=== PATIENT | female | born 1990 | race Hispanic/Latino ===

== ENCOUNTER 2017-05-31 22:27 | Emergency (ER) | payer SELFPAY ==
[2017-05-31 22:46] VITALS: BP 125/71; TEMP 98.6; O2SAT 100
--- NOTE | 2017-05-31 22:52 | ED.PDOC ---
History of Present Illness - General Chief Complaint: Respiratory Problem Stated Complaint: head congestion Time Seen by Provider: 05/31/17 22:48 Source: patient Exam Limitations: no limitations - History of Present Illness Initial Comments: The patient is a 27-year-old female presenting to the emergency room secondary to a mild cough and nasal congestion present for last 3 days. Possible low- grade fevers and a mild sore throat with some ear pressure. No shortness of breath. No significant near syncope. The patient has been using Zyrtec-D and Advil along with Afrin nasal spray. No fevers. She is feeling some sinus pressure. Severity: moderate Improving Factors: nothing Worsening Factors: nothing Associated Symptoms: cough, fever/chills, malaise Allergies/Adverse Reactions: Allergies Sulfa Antibiotics Allergy (Verified 04/16/14 13:51) Sulfamethoxazole w/Trimethoprim [From Bactrim] Allergy (Verified 04/16/14 13:51) Home Medications: Ambulatory Orders Cetirizine HCl [Zyrtec Allergy] 10 mg PO 05/31/17 Review of Systems - Review of Systems Constitutional: States: malaise EENTM: States: nose congestion, throat pain Respiratory: States: no symptoms reported, cough Cardiology: States: no symptoms reported Gastrointestinal/Abdominal: States: no symptoms reported Genitourinary: States: no symptoms reported Musculoskeletal: States: no symptoms reported Skin: States: no symptoms reported Neurological: States: no symptoms reported, headache - sinus Endocrine: States: no symptoms reported All other Systems: No Change from Baseline Past Medical History (General) - Patient Medical History Hx Seizures: No Hx Stroke: No Hx Dementia: No Hx Asthma: Yes Hx of COPD: No Hx Cardiac Disorders: No Hx Congestive Heart Failure: No Hx Pacemaker: No Hx Hypertension: Yes Hx Thyroid Disease: No Hx Diabetes: Yes Hx Gastroesophageal Reflux: Yes Hx Renal Disease: No Hx Cancer: No Hx of HIV: No Hx Hepatitis C: No Hx MRSA: No Surgical History: appendectomy, cholecystectomy - Vaccination History Hx Tetanus, Diphtheria Vaccination: No Hx Influenza Vaccination: Yes Hx Pneumococcal Vaccination: No - Social History Hx Tobacco Use: No Hx Chewing Tobacco Use: No Hx Alcohol Use: No Hx Substance Use: No Hx Substance Use Treatment: No Hx Depression: Yes Hx Physical Abuse: No Hx Emotional Abuse: No Hx Suspected Abuse: No - Female History Hx Last Menstrual Period: 09/13/13 Patient : No Family Medical History - Family History Father Grandparents Living Status: Hx Family Diabetes: Yes Physical Exam - Physical Exam General Appearance: Alert, Comfortable, No apparent distress Eye Exam: bilateral normal Ears, Nose, Throat: hearing grossly normal, nasal congestion, pharyngeal erythema Neck: non-tender, full range of motion Respiratory: lungs clear, normal breath sounds, no respiratory distress, no accessory muscle use Cardiovascular/Chest: normal peripheral pulses, regular rate, rhythm, no edema Peripheral Pulses: radial,right: 2+, radial,left: 2+, dorsalis pedis,right: 2+, dorsalis pedis,left: 2+ Gastrointestinal/Abdominal: non tender, soft Rectal Exam: deferred Back Exam: normal inspection Extremity: normal range of motion, non-tender, normal inspection, no pedal edema , normal capillary refill 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 The patient needs to keep herself well-hydrated. Continue the Advil 3 times daily for the next few days with food. She can continue Zyrtec twice daily for the next few days. She can add a saline nasal spray such as Broome spray nasal spray every couple of hours throughout the day. A humidifier may help symptoms. Plain Mucinex can also be taken as needed to help thin secretions. he should follow- up with her primary care doctor towards the end of the week. ER warnings were given for any significant worsening. Departure - Departure Clinical Impression: Common cold Disposition: Discharge to Home or Self Care Condition: Fair Departure Forms: ED Discharge - Pt. Copy, Patient Portal Self Enrollment Instructions: DI for Common Cold Diet: regular diet Activity: increase activity as tolerated Home Medications: Ambulatory Orders Cetirizine HCl [Zyrtec Allergy] 10 mg PO 05/31/17 Additional Instructions: the patient's a 27-year-old female presenting to the emergency room with what appears to be a viral upper respiratory tract infection. The patient needs to keep herself well-hydrated. Continue the Advil 3 times daily for the next few days with food. She can continue Zyrtec twice daily for the next few days. She can add a saline nasal spray such as Broome spray nasal spray every couple of hours throughout the day. A humidifier may help symptoms. Plain Mucinex can also be taken as needed to help thin secretions. he should follow- up with her primary care doctor towards the end of the week. ER warnings were given for any significant worsening.
== END 2017-05-31 22:58 | disposition home or self-care (01) ==
LOC: ER 22:27
DX: J00 Acute nasopharyngitis [common cold] (principal); J45.909 Unspecified asthma, uncomplicated; I10 Essential (primary) hypertension; E11.9 Type 2 diabetes mellitus without complications; K21.9 Gastro-esophageal reflux disease without esophagitis

== ENCOUNTER 2017-06-26 20:27 | Emergency (ER) | payer SELFPAY ==
[2017-06-26] MEDS ORDERED: ONDANSETRON ODT 8 MG TAB SL ONE (21:06)
[2017-06-26] MEDS ORDERED: SODIUM CHLORIDE 0.9% 1000ML 1,000 ML IVS ONE (21:06)
--- NOTE | 2017-06-26 21:09 | ED.PDOC ---
History of Present Illness - General Chief Complaint: GI Problem Stated Complaint: vomiting and diarrhea Time Seen by Provider: 06/26/17 21:06 Information Source: patient Exam Limitations: no limitations - History of Present Illness Initial Comments: patient comes in today with 1 day onset of nausea, vomiting, abdominal cramping , and diarrhea. Patient states she felt fine yesterday and actually went to the [place]. There she had a turkey leg. It tasted fine and no one else in the family got sick. This morning breakfast was normal at home. Several hours later patient started having nausea, vomiting, and multiple episodes of loose diarrhea. She has no fever or chills. However, her abdominal cramping is diffuse and severe. Patient states she very rarely actually has vomiting and is seems to be more severe than in the past. No one else has been sick in her family. She has no recent travel. Patient has diet-controlled diabetes mellitus as well as diet controlled hypertension. She does have the IUD in place for control. Abdominal Pain Onset Location: generalized abdomen Pain Radiation: no radiation Quality: moderate, cramping Timing/Duration: 7-24 hours Improving Factors: nothing Worsening Factors: nothing Associated Symptoms: nausea/vomiting Review of Systems - Review of Systems Constitutional: States: no symptoms reported. Denies: chills, fever EENTM: States: no symptoms reported. Denies: ear pain, nose pain, nose congestion Respiratory: States: no symptoms reported. Denies: cough, short of breath, wheezing Cardiology: States: no symptoms reported. Denies: chest pain, edema, palpitations Gastrointestinal/Abdominal: States: see HPI Genitourinary: States: no symptoms reported. Denies: dysuria, frequency, hematuria Skin: States: no symptoms reported Neurological: States: no symptoms reported Past Medical History (General) - Patient Medical History Hx Seizures: No Hx Stroke: No Hx Dementia: No Hx Asthma: Yes Hx of COPD: No Hx Cardiac Disorders: No Hx Congestive Heart Failure: No Hx Pacemaker: No Hx Hypertension: Yes Hx Thyroid Disease: No Hx Diabetes: Yes Hx Gastroesophageal Reflux: Yes Hx Renal Disease: No Hx Cancer: No Hx of HIV: No Hx Hepatitis C: No Hx MRSA: No Hx Other - free text: Nephrolithiasis Surgical History: cholecystectomy, tonsillectomy - Vaccination History Hx Tetanus, Diphtheria Vaccination: No Hx Influenza Vaccination: Yes Hx Pneumococcal Vaccination: No - Social History Hx Tobacco Use: No Hx Chewing Tobacco Use: No Hx Alcohol Use: No Hx Substance Use: No Hx Substance Use Treatment: No Hx Depression: Yes Hx Physical Abuse: No Hx Emotional Abuse: No Hx Suspected Abuse: No - Female History Patient is a Female of Child Bearing Age (10 -59 yrs old): Yes Hx Last Menstrual Period: 09/13/13 Patient : No Family Medical History - Family History Father Grandparents Living Status: Hx Family Diabetes: Yes Physical Exam - Physical Exam General Appearance: Alert, Ill Appearing Eyes, Ears, Nose, Throat Exam: PERRL/EOMI, normal ENT inspection, TMs normal, pharynx normal, other - tacky mucous membranes Neck: non-tender, full range of motion, supple, normal inspection Respiratory: chest non-tender, lungs clear, normal breath sounds, no respiratory distress Cardiovascular/Chest: normal peripheral pulses, regular rate, rhythm, no edema, no gallop, no JVD, no murmur Peripheral Pulses: No deficit Gastrointestinal/Abdominal: soft, other - tender to palpation diffusely without rebound or guarding. Hypoactive bowel sounds in all 4 quadrants. No masses no hernias Back Exam: no CVA tenderness Extremity: normal range of motion Neurologic: alert, oriented x 3 Progress - Progress Progress: 06/26/17 21:40 06/26/17 21:06 Sodium Chloride 0.9% 1000ML [Ns 1000 ml] 1,000 ml IVS ONCE URINALYSIS Stat Laboratory Results WBC 14.2 K/mm3 (4.8-10.8) H 06/26/17 21:15 RBC 4.73 M/mm3 (4.20-5.40) 06/26/17 21:15 Hgb 14.8 gm/dL (12.0-16.0) 06/26/17 21:15 Hct 42.4 % (36.0-47.0) 06/26/17 21:15 MCV 89.7 fl (81.0-99.0) 06/26/17 21:15 MCH 31.2 pg (27.0-31.0) H 06/26/17 21:15 MCHC 34.8 g/dL (33.0-37.0) 06/26/17 21:15 RDW 13.3 % (11.5-14.5) 06/26/17 21:15 Plt Count 321 K/mm3 (130-400) 06/26/17 21:15 MPV 8.2 fl (7.40-10.4) 06/26/17 21:15 Absolute Neuts (auto) 12.10 K/uL (1.8-6.8) H 06/26/17 21:15 Absolute Lymphs (auto) 1.20 K/uL (1.0-3.4) 06/26/17 21:15 Absolute Monos (auto) 0.70 K/uL (0.2-0.8) 06/26/17 21:15 Absolute Eos (auto) 0.10 K/uL (0.0-0.4) 06/26/17 21:15 Absolute Basos (auto) 0.00 K/uL (0.0-0.1) 06/26/17 21:15 Neutrophils % 85.3 % (42.0-78.0) H 06/26/17 21:15 Lymphocytes % 8.7 % (20.0-50.0) L 06/26/17 21:15 Monocytes % 5.0 % (2.0-9.0) 06/26/17 21:15 Eosinophils % 0.7 % (1.0-5.0) L 06/26/17 21:15 Basophils % 0.3 % (0.0-2.0) 06/26/17 21:15 Sodium 139 mmol/L (135-145) 06/26/17 21:15 Potassium 4.2 mmol/L (3.6-5.0) 06/26/17 21:15 Chloride 103 mmol/L (101-111) 06/26/17 21:15 Carbon Dioxide 26 mmol/L (21-31) 06/26/17 21:15 Anion Gap 14.2 (12-18) 06/26/17 21:15 BUN 17 mg/dL (7-18) 06/26/17 21:15 Creatinine 0.53 mg/dL (0.6-1.3) L 06/26/17 21:15 BUN/Creatinine Ratio 32.1 (10-20) H 06/26/17 21:15 Random Glucose 174 mg/dL (70-105) H 06/26/17 21:15 Serum Osmolality 283.3 mOsm/L (275-295) 06/26/17 21:15 Calcium 10.1 mg/dL (8.4-10.2) 06/26/17 21:15 Total Bilirubin 0.8 mg/dL (0.2-1.0) 06/26/17 21:15 AST 57 IU/L (10-42) H 06/26/17 21:15 ALT 91 IU/L (10-60) H 06/26/17 21:15 Alkaline Phosphatase 131 IU/L (42-121) H 06/26/17 21:15 Serum Total Protein 8.4 gm/dL (6.4-8.2) H 06/26/17 21:15 Albumin 5.0 g/dl (3.2-5.5) 06/26/17 21:15 Globulin 3.4 gm/dL (2.3-3.5) 06/26/17 21:15 Albumin/Globulin Ratio 1.5 (1.1-1.9) 06/26/17 21:15 Serum HCG, Qual Negative 06/26/17 21:15 - Results/Orders Results/Orders: Patient Name: YU TOM Gender: Female Date of : 1990 Referring Physician: GRIFFIN ALDANA Organization: [facility] Accession Number: [id number] Requested Date: June 26, 2017 23:22 Report Status: Final Requested Procedure: 1 Procedure Description: Abdoment/Pelvis w/o Contrast Modality: CT Findings Reporting MD: Vikash Ricardo Fellow MD: Not available Dictation Time: Radiation Engineer: Not available Dispatcher Chief Oil Date: Procedure: CT ABDOMEN PELVIS WITHOUT IV CONTRAST Exam Date: 06/26/2017 Ordering Provider: GRIFFIN ALDANA Clinical Indication: Right lower quadrant pain Comparison: None TECHNIQUE: 5 mm images were taken through the abdomen and pelvis without the administration of nonionic intravenous contrast material. Oral contrast was not administered. Coronal and sagittal reformatted images were generated. This exam was performed according to our departmental dose optimization program which includes use of automated exposure control, adjustment of the mA and/or kV according to patient size and/or use of iterative reconstruction technique. FINDINGS: Lower chest: Nonacute Abdomen: Liver and biliary system: Hepatomegaly. Hepatic steatosis. Prior cholecystectomy. Spleen: Unremarkable Pancreas: Unremarkable Adrenal glands: Unremarkable Kidneys: No hydronephrosis in either kidney. Lymph nodes: Prominent mesenteric and right lower quadrant lymph nodes. Retroperitoneum, abdominal wall, peritoneal cavity: No ascites. No free intraperitoneal air. Small Fat-containing umbilical [facility] [address] [facility], [address] [place], [place] T [phone] F [phone] Kambit - Report exported on Jun 27, 2017 00:17:32 -0500 - Page 2 of 2 hernia. Vessels: No abdominal aortic aneurysm. Pelvis: Lymph nodes: No lymphadenopathy Bowel: No bowel obstruction. No findings to suggest acute appendicitis. No bowel wall thickening evident. Bladder: Unremarkable Pelvic organs: IUD noted Bones: Nonacute IMPRESSION: 1. Findings suggestive of mesenteric adenitis. 2. No evidence of acute appendicitis. 3. Hepatomegaly and hepatic steatosis. discussed with patient diagnoses. She understands this sometimes can be a foodborne illness by any gastroenteritis may cause this. Although we normally do see children certainly possible to have any age. She understands if the symptoms do not improve in the next 36 hours she should have a stool culture with her PCP. Worsening or continuing of severe abdominal pain she cause her to come to the emergency room again. Discussed diet changes, decrease processed carbohydrates and fatty foods for the fatty liver disease and umbilical hernia which is asymptomatic at this time. Departure - Departure Clinical Impression: Mesenteric adenitis, Fatty (change of) liver, not elsewhere classified Umbilical hernia Qualifiers: Obstruction and gangrene presence: without obstruction or gangrene Qualified Code(s): K42.9 - Umbilical hernia without obstruction or gangrene Disposition: Discharge to Home or Self Care Condition: Fair Departure Forms: ED Discharge - Pt. Copy, Patient Portal Self Enrollment Diet: low fat, low cholesterol Home Medications: Ambulatory Orders Cetirizine HCl [Zyrtec Allergy] 10 mg PO 05/31/17 Additional Instructions: patient should increase by mouth fluid. May take [id number] ibuprofen for pain and was slowly increase her diet back to normal diet. She should cut out processed carbohydrates as well as fat foods. follow-up to recheck her liver after acute illness is over into 3 weeks. return to ER for increased pain , intractable emesis, failure to improve in 36 hours. If not improved may need stool culture.
[2017-06-26] MEDS ORDERED: PROMETHAZINE HCL INJ 12.5 MG in SODIUM CHLORIDE 0.9% 50ML 50 ML IVPB ONE (23:01)
[2017-06-26] MEDS ORDERED: LOPERAMIDE CAP 2 MG CAP PO ONE (23:02)
[2017-06-26] MEDS ORDERED: PROMETHAZINE HCL INJ 25 MG/ML VIAL ONE (23:06)
[2017-06-26] MEDS ORDERED: SODIUM CHLORIDE 0.9% 50ML 50 ML ONE (23:06)
--- NOTE | 2017-06-27 00:10 | CT ---
Procedure: CT ABDOMEN PELVIS WITHOUT IV CONTRAST Exam Date: 06/26/2017 Ordering Provider: GRIFFIN ALDANA Clinical Indication: Right lower quadrant pain Comparison: None TECHNIQUE: 5 mm images were taken through the abdomen and pelvis without the administration of nonionic intravenous contrast material. Oral contrast was not administered. Coronal and sagittal reformatted images were generated. This exam was performed according to our departmental dose optimization program which includes use of automated exposure control, adjustment of the mA and/or kV according to patient size and/or use of iterative reconstruction technique. FINDINGS: Lower chest: Nonacute Abdomen: Liver and biliary system: Hepatomegaly. Hepatic steatosis. Prior cholecystectomy. Spleen: Unremarkable Pancreas: Unremarkable Adrenal glands: Unremarkable Kidneys: No hydronephrosis in either kidney. Lymph nodes: Prominent mesenteric and right lower quadrant lymph nodes. Retroperitoneum, abdominal wall, peritoneal cavity: No ascites. No free intraperitoneal air. Small Fat-containing umbilical hernia. Vessels: No abdominal aortic aneurysm. Pelvis: Lymph nodes: No lymphadenopathy Bowel: No bowel obstruction. No findings to suggest acute appendicitis. No bowel wall thickening evident. Bladder: Unremarkable Pelvic organs: IUD noted Bones: Nonacute IMPRESSION: 1. Findings suggestive of mesenteric adenitis. 2. No evidence of acute appendicitis. 3. Hepatomegaly and hepatic steatosis. Electronically signed by: Vikash Ricardo MD 06/27/2017 12:08 AM CDT
[2017-06-27] MEDS ORDERED: KETOROLAC TROMETHAMINE INJ 30 MG/ML VIAL IV ONE (00:19)
[2017-06-27 00:36] VITALS: BP 104/72; TEMP 98.2; O2SAT 98
== END 2017-06-27 00:36 | disposition home or self-care (01) ==
LOC: ER 20:27
DX: I88.0 Nonspecific mesenteric lymphadenitis (principal); K76.0 Fatty (change of) liver, not elsewhere classified; K42.9 Umbilical hernia without obstruction or gangrene; E11.9 Type 2 diabetes mellitus without complications; I10 Essential (primary) hypertension; J45.909 Unspecified asthma, uncomplicated
CPT/HCPCS: 36415; 74176; 80053; 81001; 84703; 85025; A4216; J1885; J2550; J7030

== ENCOUNTER 2017-12-09 17:23 | Emergency (ER) | payer SELFPAY ==
[2017-12-09 17:31] VITALS: TEMP 100.8
[2017-12-09] MEDS ORDERED: SODIUM CHLORIDE 0.9% 1000ML 1,000 ML IVS ONE (17:34)
[2017-12-09] MEDS ORDERED: diphenhydrAMINE HCL 50 MG/ML VIAL IV ONE (17:36)
[2017-12-09] MEDS ORDERED: METOCLOPRAMIDE HCL INJ 10 MG/2 ML VIAL IV ONE (17:37)
[2017-12-09] MEDS ORDERED: PANTOPRAZOLE SODIUM IV 40 MG VIAL IV ONE (17:37)
--- NOTE | 2017-12-09 17:41 | ED.PDOC ---
History of Present Illness - General Chief Complaint: Abdominal Pain Stated Complaint: ABD PAIN VOMITING Time Seen by Provider: 12/09/17 17:33 Information Source: patient, family Exam Limitations: no limitations - History of Present Illness Initial Comments: PAIN ONSET THIS AM, BUT WORSENING Abdominal Pain Onset Location: epigastric Pain Radiation: back Quality: cramping Timing/Duration: getting worse Improving Factors: nothing Worsening Factors: other - WORSE WITH BREATHING Associated Symptoms: back pain Review of Systems - Review of Systems Constitutional: Denies: fever EENTM: States: no symptoms reported Respiratory: Denies: cough, short of breath Cardiology: Denies: chest pain Gastrointestinal/Abdominal: States: abdominal pain, nausea Genitourinary: States: no symptoms reported Musculoskeletal: States: no symptoms reported Skin: States: no symptoms reported Neurological: States: no symptoms reported Endocrine: States: no symptoms reported Past Medical History (General) - Patient Medical History Hx Seizures: No Hx Stroke: No Hx Dementia: No Hx Asthma: Yes Hx of COPD: No Hx Cardiac Disorders: No Hx Congestive Heart Failure: No Hx Pacemaker: No Hx Hypertension: Yes Hx Thyroid Disease: No Hx Diabetes: Yes Hx Gastroesophageal Reflux: Yes Hx Renal Disease: No Hx Cancer: No Hx of HIV: No Hx Hepatitis C: No Hx MRSA: No - Vaccination History Hx Tetanus, Diphtheria Vaccination: No Hx Influenza Vaccination: Yes Hx Pneumococcal Vaccination: No - Social History Hx Tobacco Use: No Hx Chewing Tobacco Use: No Hx Alcohol Use: No Hx Substance Use: No Hx Substance Use Treatment: No Hx Depression: Yes Hx Physical Abuse: No Hx Emotional Abuse: No Hx Suspected Abuse: No - Female History Hx Last Menstrual Period: 09/13/13 Patient : No Family Medical History - Family History Father Grandparents Living Status: Hx Family Diabetes: Yes Physical Exam - Physical Exam General Appearance: Obvious distress Eyes, Ears, Nose, Throat Exam: PERRL/EOMI, pharynx normal Neck: non-tender, full range of motion Respiratory: chest non-tender, lungs clear, normal breath sounds, no respiratory distress Cardiovascular/Chest: normal peripheral pulses, regular rate, rhythm Gastrointestinal/Abdominal: normal bowel sounds, soft, tenderness - TENDERNESS MILD IN EPIGASTRIUM WITHOUT GUARDING OR REBOUND Back Exam: CVA tenderness (R) Extremity: normal range of motion, non-tender, normal inspection, no pedal edema Neurologic: alert, normal mood/affect, oriented x 3 Skin Exam: normal color, warm/dry Lymphatic: no adenopathy Departure - Departure Clinical Impression: Elevated liver enzymes, Gastroparesis GERD (gastroesophageal reflux disease) Qualifiers: Esophagitis presence: without esophagitis Qualified Code(s): K21.9 - Gastro- esophageal reflux disease without esophagitis Disposition: Discharge to Home or Self Care Departure Forms: ED Discharge - Pt. Copy, Patient Portal Self Enrollment Instructions: DI for Abdominal Pain-Adult Prescriptions: Ondansetron [Zofran Odt] 4 mg PO Q6HR PRN #15 tab PRN Reason: Nausea Metoclopramide Tab [Reglan Tab] 5 mg PO AC #20 tab Home Medications: Ambulatory Orders Cetirizine HCl [Zyrtec Allergy] 10 mg PO 05/31/17 Metoclopramide Tab [Reglan Tab] 5 mg PO AC #20 tab 12/09/17 Ondansetron [Zofran Odt] 4 mg PO Q6HR PRN #15 tab 12/09/17
[2017-12-09 18:40] VITALS: O2SAT 96
[2017-12-09 19:03] VITALS: BP 107/72
== END 2017-12-09 19:02 | disposition home or self-care (01) ==
LOC: ER 17:23
DX: E11.43 Type 2 diabetes mellitus with diabetic autonomic (poly)neuropathy (principal); K31.84 Gastroparesis; K21.9 Gastro-esophageal reflux disease without esophagitis; R79.89 Other specified abnormal findings of blood chemistry; J45.909 Unspecified asthma, uncomplicated; I10 Essential (primary) hypertension; F32.9 Major depressive disorder, single episode, unspecified
CPT/HCPCS: 36415; 80053; 83690; 85025; J1200; J2765; J7030

== ENCOUNTER 2018-12-19 03:16 | Emergency (ER) | payer SELFPAY ==
[2018-12-19] MEDS ORDERED: MORPHINE SULFATE INJ 10 MG/ML VIAL IM ONE (05:05)
[2018-12-19] MEDS ORDERED: MORPHINE SULFATE INJ 10 MG/ML VIAL ONE (05:06)
[2018-12-19] MEDS ORDERED: SODIUM CHLORIDE 0.9% 1000ML 1,000 ML IVS ONE ×2 (05:06→06:44)
[2018-12-19] MEDS ORDERED: ALUM & MAG HYDROX-SIMETHICONE 30 ML, LIDOCAINE VISCOUS 2% 15 ML PO ONE ×2 (05:06)
[2018-12-19] MEDS ORDERED: ONDANSETRON ODT 8 MG TAB SL ONE (05:06)
--- NOTE | 2018-12-19 05:07 | RAD ---
EXAM: Acute abdominal series. INDICATION: Abdominal pain, acute. COMPARISON: None. FINDINGS: Cardiac silhouette: Unremarkable. Hazel: Unremarkable. Lobar consolidation: None. Pleural effusion: None. Pneumothorax: None. Other: None. Intraperitoneal free air: Negative. Bowel: No dilated loops of small bowel or air-fluid levels. Moderate amount of stool within the colon. Bones: Unremarkable. Other: Liver appears enlarged measuring 26.2 cm in cc dimension. Cholecystectomy clips are noted. An IUD is in the pelvis. IMPRESSION: 1. Nonspecific, nonobstructed bowel gas pattern. 2. Hepatomegaly. Electronically signed by: Richard Amezcua MD 12/19/2018 5:05 AM CDT
[2018-12-19] MEDS ORDERED: INSULIN, REG.(HUMAN) 100 U/ML VIAL IV ONE (05:08)
[2018-12-19] MEDS ORDERED: LIDOCAINE HCL 2% (MOUTH-THROAT) 15 ML UD ONE (05:14)
[2018-12-19] MEDS ORDERED: ALUM & MAG HYDROX-SIMETHICONE 30 ML UD ONE (05:15)
[2018-12-19] MEDS ORDERED: INSULIN LISPRO 100 UNITS/ML PEN SUBCU ONE (05:40)
--- NOTE | 2018-12-19 05:40 | ED.PDOC ---
History of Present Illness - General Chief Complaint: Abdominal Pain Stated Complaint: abdominal pain Time Seen by Provider: 12/19/18 03:47 Source: patient Exam Limitations: no limitations - History of Present Illness Initial Comments: the patient is a 28-year-old female presented to emergency room with 3 days of really severe epigastric and periumbilical pain. The epigastric discomfort is the most uncomfortable. It is better with sitting upright and worse with lying back. It feels like something is pulling when she lies back. She does have a previous cholecystectomy port site at almost the point of maximal pain. I do not definitively feel a hernia there and I'm having a difficult time seeing any definite hernia there. No definite fevers. She is a type II diabetic but does not take any medications for it. She does have a history of hepatomegaly for an uncertain reason she also has a history of marked hyperlipidemia and hypercholesterolemia for which she is not taking any medications. I cannot find anywhere in her records that she has been appropriately worked up for this. She has never seen gastroenterology. She is not taking any medications for hypertriglyceridemia or hypercholesterolemia. She does have a known small umbilical hernia that does cause her some discomfort and has for several years. Timing/Duration: unsure Severity: severe Improving Factors: other - sitting up Worsening Factors: other - jasper back flat Associated Symptoms: loss of appetite, nausea/vomiting Allergies/Adverse Reactions: Allergies Sulfa Antibiotics Allergy (Verified 04/16/14 13:51) Sulfamethoxazole w/Trimethoprim [From Bactrim] Allergy (Verified 04/16/14 13:51) Home Medications: Ambulatory Orders NK 12/19/18 Review of Systems - Review of Systems Constitutional: States: malaise EENTM: States: no symptoms reported Respiratory: States: no symptoms reported Cardiology: States: no symptoms reported Gastrointestinal/Abdominal: States: abdominal pain, nausea Genitourinary: States: no symptoms reported Musculoskeletal: States: no symptoms reported Skin: States: no symptoms reported Neurological: States: no symptoms reported Endocrine: States: no symptoms reported All other Systems: No Change from Baseline Past Medical History (General) - Patient Medical History Hx Seizures: No Hx Stroke: No Hx Dementia: No Hx Asthma: Yes Hx of COPD: No Hx Cardiac Disorders: No Hx Congestive Heart Failure: No Hx Pacemaker: No Hx Hypertension: Yes Hx Thyroid Disease: No Hx Diabetes: Yes Hx Gastroesophageal Reflux: Yes Hx Renal Disease: No Hx Cancer: No Hx of HIV: No Hx Hepatitis C: No Hx MRSA: No Surgical History: cholecystectomy, tonsillectomy - Vaccination History Hx Tetanus, Diphtheria Vaccination: No Hx Influenza Vaccination: No Hx Pneumococcal Vaccination: No - Social History Hx Tobacco Use: No Hx Chewing Tobacco Use: No Hx Alcohol Use: No Hx Substance Use: No Hx Substance Use Treatment: No Hx Depression: Yes Hx Physical Abuse: No Hx Emotional Abuse: No Hx Suspected Abuse: No - Female History Patient is a Female of Child Bearing Age (10 -59 yrs old): Yes Hx Last Menstrual Period: 09/13/13 Patient : No - Triage Comment ED Triage Comment: Low/mid abdominal pain for past week, but now pain to upper mid abdomen and increasing. Denies vomiting but states has nausea. Also out of all meds at present Family Medical History - Family History Father Grandparents Living Status: Hx Family Diabetes: Yes Physical Exam - Physical Exam General Appearance: Alert, Obvious distress, Other - the patient is leaning forward and pain. Eye Exam: bilateral normal Ears, Nose, Throat: hearing grossly normal, normal ENT inspection Neck: full range of motion, supple Respiratory: lungs clear, normal breath sounds, no respiratory distress, no accessory muscle use Cardiovascular/Chest: normal peripheral pulses, regular rate, rhythm - orderline tachycardia, no edema Peripheral Pulses: radial,right: 2+, radial,left: 2+, dorsalis pedis,right: 2+, dorsalis pedis,left: 2+ Gastrointestinal/Abdominal: hepatomegaly - the patient's liver is huge but nontender to palpation., other - the patient is obese and has a large pannus. She does have some mild to moderate pain at the umbilical hernia site whichis partially reducible. She also has pain at the epigastric region underneath an operative port site from her previous cholecystectomy. I cannot definitively feel a hernia nor able to clearly define one on ultrasound. 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, alert, normal mood/affect, oriented x 3 Skin Exam: normal color Comments: Vital Signs - 24 hr 12/19/18 12/19/18 12/19/18 03:30 04:18 05:00 Temperature 98.0 F Pulse Rate [ 106 H 89 98 H Right] Respiratory 18 18 Rate Blood Pressure 124/95 134/79 149/110 [Left Arm] O2 Sat by Pulse 100 96 97 Oximetry 12/19/18 05:41 Temperature Pulse Rate [ 989 H Right] Respiratory 20 Rate Blood Pressure 116/78 [Left Arm] O2 Sat by Pulse Oximetry Progress - Progress Progress: 12/19/18 06:07 the patient is a 28-year-old female presenting to the emergency room secondary toepigastric pain is significantly worse over the last 3 days. She has had some nausea but no vomiting. The patient does have complicating factors that she has significant hepatomegaly and severe hyperlipidemia. Several blood draws have had to be performed in order to get some chemistry results. Even with these chemistry results were not entirely certain how accurate they are. There is a wide variation in the [id number] glucose and the measured glucose by lab. There is some significant hyponatremia noted on lab however we're not certain if this is real at this point. The patient is going to go ahead and receive some subcutaneous insulin for presumed hyperglycemia and a liter of IV fluids for the hyponatremia and likely at least mild dehydration given her lack of treatment of her diabetes. Abdominal pain is somewhat better after 4 mg of morphine and a GI cocktail. We are currently awaiting a CT scan report on the abdomen and pelvis. We are also currently waiting a lipid profile which may take a while given that her blood looks closer to melted butter than blood. she has apparently not seen endocrine or gastroenterology in the past for her diabetes or her significant hepatomegaly. Management of her diabetes may be extremely difficult until the hypertriglyceridemia is improved upon as apparently Accu-Chek numbers are notoriously erroneous when lipid numbers are so high. 12/19/18 06:54 update:CT scan of abdomen and pelvis without contrast does not show any developing hernia in the epigastric area. It does however show changes consistent with underlying pancreatitis. This is no surprise given a triglyceride level of approximately 13,000. The patient is continuing to receive IV fluids. pain is better than it was after the pain medications. We are going to try and transfer the patient to [facility] where she can be seen by gastroenterology, possibly endocrinology for management of her hepatomegaly, fatty liver, hypertriglyceridemia and pancreatitis. I'm uncertain how accurate the rest of the lab work is and should be repeated upon arrival in their laboratory system. For now she is receiving a couple of liters of IV fluids which should only help with moderate hyponatremia if it is actually present. She will need a repeat potassium. No potassium has been given here at this time. Again I'm uncertain how accurate the potassium is. I would also recommend repeating an amylase and lipase. the lipase was normal, but again the lab work is uncertain and the CT scan and clinical picture are consistent with pancreatitis. Certainly a blood sugar needs to be repeated on the blood draw. Transferred for higher level of care and specialty care. The patient may require something along the lines of plasmapheresis in order to remove triglycerides to allow the pancreatitis to improve. For now she is nothing by mouth except water. Additionally the patient does have a 5.7 cm right adnexal structure that needs a follow-up pelvic ultrasound. [email or web address] [email or web address] [phone] 12/19/18 07:18 - Results/Orders Results/Orders: acute abdominal series shows markedly hepatomegaly. Departure - Departure Clinical Impression: Hypertriglyceridemia, Hyponatremia, Adnexal mass, Hepatomegaly Pancreatitis Qualifiers: Chronicity: acute Pancreatitis type: other Acute pancreatitis complication: no infection or necrosis Qualified Code(s): K85.80 - Other acute pancreatitis without necrosis or infection Disposition: Transfer to Hospital Departure Forms: ED Discharge - Pt. Copy, Patient Portal Self Enrollment Instructions: DI for Abdominal Pain-Adult Referrals: Lupillo Cho MD [Primary Care Provider] - 1-2 Weeks Home Medications: Ambulatory Orders NK 12/19/18 Transfer to Outside Facility - Transfer Information Accepting Facility: [facility] Reason for Transfer: required specialist not available
[2018-12-19] MEDS ORDERED: PANTOPRAZOLE SODIUM IV 40 MG VIAL IV ONE (06:06)
[2018-12-19] MEDS ORDERED: SUCRALFATE 1 GM/10 ML 1 GM UD PO ONE (06:06)
--- NOTE | 2018-12-19 06:40 | CT ---
EXAM: CT Abdomen and Pelvis Without Intravenous Contrast CLINICAL HISTORY: The patient is 28 years old and is Female; epigastric pain near prev port site, hepatomegaly TECHNIQUE: Axial computed tomography images of the abdomen and pelvis without intravenous contrast. Sagittal and coronal reformatted images were created and reviewed. This CT exam was performed using one or more of the following dose reduction techniques: automated exposure control, adjustment of the mA and/or kV according to patient size, and/or use of iterative reconstruction technique. COMPARISON: CT of the abdomen and pelvis June 26, 2017. FINDINGS: LUNG BASES: Unremarkable. No mass. No consolidation. ABDOMEN: LIVER: There is a diffuse decrease in hepatic parenchymal density, consistent with fatty infiltration. The liver is enlarged. GALLBLADDER AND BILE DUCTS: Surgical clips are present in the right upper quadrant, consistent with previous cholecystectomy. PANCREAS: Peripancreatic inflammation and fluid is noted. No ductal dilation. SPLEEN: Unremarkable. ADRENALS: Unremarkable. No mass. KIDNEYS AND URETERS: No obstructing stones. No hydronephrosis. No perinephric fluid. STOMACH AND BOWEL: Stomach is decompressed. The small bowel is relatively normal in caliber. A moderate amount stool is present throughout colon. There is no mucosal thickening or evidence of bowel obstruction. PELVIS: APPENDIX: The appendix is normal in caliber without surrounding inflammation. BLADDER: Unremarkable. No stones. REPRODUCTIVE: An approximate 5.7 cm right adnexal low attenuating lesion is present. An IUD is in place. The left ovary is not definitively seen. ABDOMEN and PELVIS: INTRAPERITONEAL SPACE: Trace free fluid is present within the pelvis which is likely physiologic. No free air. BONES/JOINTS: No acute fracture. SOFT TISSUES: A small fat-containing umbilical hernia is present. VASCULATURE: Unremarkable. No abdominal aortic aneurysm. LYMPH NODES: Unremarkable. No enlarged lymph nodes. IMPRESSION: 1. Findings consistent with acute pancreatitis. No pseudocyst. 2. Large right ovarian cyst. Recommend prompt follow-up with pelvic US. 3. Hepatomegaly and hepatic steatosis. Electronically signed by: Sheryl Mendosa MD 12/19/2018 6:39 AM CDT
[2018-12-19 07:21] VITALS: TEMP 98.9
[2018-12-19] MEDS ORDERED: ONDANSETRON INJ 4 MG/2 ML VIAL IV ONE (07:30)
[2018-12-19] MEDS ORDERED: MORPHINE SULFATE INJ 10 MG/ML VIAL IV ONE (07:31)
[2018-12-19 08:15] VITALS: BP 125/82; O2SAT 98
== END 2018-12-19 08:08 | disposition short-term general hospital (02) ==
LOC: ER 03:16
DX: K85.80 Other acute pancreatitis without necrosis or infection (principal); E78.1 Pure hyperglyceridemia; R16.0 Hepatomegaly, not elsewhere classified; E87.1 Hypo-osmolality and hyponatremia; N83.201 Unspecified ovarian cyst, right side; K42.9 Umbilical hernia without obstruction or gangrene; R11.2 Nausea with vomiting, unspecified; E86.0 Dehydration; E11.9 Type 2 diabetes mellitus without complications; K21.9 Gastro-esophageal reflux disease without esophagitis; J45.909 Unspecified asthma, uncomplicated; I10 Essential (primary) hypertension; F32.9 Major depressive disorder, single episode, unspecified; Z90.49 Acquired absence of other specified parts of digestive tract; Z88.2 Allergy status to sulfonamides
CPT/HCPCS: 74019; 74176; 80053; 80061; 81001; 81025; 82948; 83690; 85025; J1815; J2270; J2405; J7030